=== PATIENT | female | born 1975 | race Hispanic/Latino ===

== ENCOUNTER 2016-08-03 10:50 | Outpatient (CLI) | payer BC ==
[~2016-08-03] VITALS: Ht 152.4 cm; Wt 86.8 kg
--- OUTSIDE RECORDS SUMMARY | 2016-08-03 10:54 | XMS REPORT | Continuity of Care Document ---
Author Author [facility] Ctr of [facility] C[facility] of [facility] Address Unknown Phone Unavailable Allergies Medications Problems Date Dx Coded Attending Type Code Diagnosis Diagnosed By 11/15/2011 493.90 ASTHMA UNSPECIFIED 11/15/2011 493.90 ASTHMA UNSPECIFIED 11/15/2011 493.90 ASTHMA UNSPECIFIED 11/15/2011 ROCK GARCIA APRN 493.90 ASTHMA UNSPECIFIED 11/15/2011 ROCK GARCIA APRN 493.90 ASTHMA UNSPECIFIED 11/15/2011 CATHRYN FRANCO APRN 493.90 ASTHMA UNSPECIFIED 11/15/2011 493.90 ASTHMA UNSPECIFIED 09/15/2012 625.9 UNSPECIFIED SYMPTOM ASSOCIATED WITH FEMALE GENITAL ORGANS 09/15/2012 626.2 MENORRHAGIA 09/15/2012 V72.31 STORAGE BATTERY INSPECTOR EXAM, ROUTINE 09/15/2012 V76.10 BREAST CANCER SCREENING 09/15/2012 V76.2 CERVICAL CANCER SCREENING (PAP SMEAR) 09/15/2012 625.9 UNSPECIFIED SYMPTOM ASSOCIATED WITH FEMALE GENITAL ORGANS 09/15/2012 626.2 MENORRHAGIA 09/15/2012 V72.31 STORAGE BATTERY INSPECTOR EXAM, ROUTINE 09/15/2012 V76.10 BREAST CANCER SCREENING 09/15/2012 V76.2 CERVICAL CANCER SCREENING (PAP SMEAR) 09/15/2012 625.9 UNSPECIFIED SYMPTOM ASSOCIATED WITH FEMALE GENITAL ORGANS 09/15/2012 626.2 MENORRHAGIA 09/15/2012 V72.31 STORAGE BATTERY INSPECTOR EXAM, ROUTINE 09/15/2012 V76.10 BREAST CANCER SCREENING 09/15/2012 V76.2 CERVICAL CANCER SCREENING (PAP SMEAR) 09/15/2012 ROCK GARCIA APRN 625.9 UNSPECIFIED SYMPTOM ASSOCIATED WITH FEMALE GENITAL ORGANS 09/15/2012 ROCK GARCIA APRN 626.2 MENORRHAGIA 09/15/2012 ROCK GARCIA APRN V72.31 STORAGE BATTERY INSPECTOR EXAM, ROUTINE 09/15/2012 JOSE SPRINKLING SYSTEM IRRIGATOR, ROCK S V76.10 BREAST CANCER SCREENING 09/15/2012 ROCK GARCIA APRN S V76.2 CERVICAL CANCER SCREENING (PAP SMEAR) 09/15/2012 ROCK GARCIA APRN S 625.9 UNSPECIFIED SYMPTOM ASSOCIATED WITH FEMALE GENITAL ORGANS 09/15/2012 ROCK GARCIA APRN S 626.2 MENORRHAGIA 09/15/2012 ROCK GARCIA APRN S V72.31 STORAGE BATTERY INSPECTOR EXAM, ROUTINE 09/15/2012 ROCK GARCIA APRN S V76.10 BREAST CANCER SCREENING 09/15/2012 ROCK GARCIA APRN S V76.2 CERVICAL CANCER SCREENING (PAP SMEAR) 09/15/2012 CATHRYN FRANCO APRN A 625.9 UNSPECIFIED SYMPTOM ASSOCIATED WITH FEMALE GENITAL ORGANS 09/15/2012 CATHRYN FRANCO APRN A 626.2 MENORRHAGIA 09/15/2012 CATHRYN FRANCO APRN A V72.31 STORAGE BATTERY INSPECTOR EXAM, ROUTINE 09/15/2012 CATHRYN FRANCO APRN A V76.10 BREAST CANCER SCREENING 09/15/2012 CATHRYN FRANCO APRN A V76.2 CERVICAL CANCER SCREENING (PAP SMEAR) 09/22/2012 789.04 ABDOMINAL PAIN LEFT LOWER QUADRANT 09/22/2012 789.04 ABDOMINAL PAIN LEFT LOWER QUADRANT 09/22/2012 ROCK GARCIA APRN S 789.04 ABDOMINAL PAIN LEFT LOWER QUADRANT 09/22/2012 ROCK GARCIA APRN S 789.04 ABDOMINAL PAIN LEFT LOWER QUADRANT 09/22/2012 CATHRYN FRANCO APRN A 789.04 ABDOMINAL PAIN LEFT LOWER QUADRANT 11/13/2012 ROCK GARCIA APRN V25.01 CONTRACEPTION - ORAL CONTRACEPTION 11/13/2012 ROCK GARCIA APRN V25.01 CONTRACEPTION - ORAL CONTRACEPTION 11/13/2012 CATHRYN FRANCO APRN A V25.01 CONTRACEPTION - ORAL CONTRACEPTION 10/20/2013 ROCK GARCIA APRN 307.42 PERSISTENT DISORDER OF INITIATING OR MAINTAINING SLEEP 10/20/2013 ROCK GARCIA APRN S 623.5 LEUKORRHEA NOT SPECIFIED INFECTIVE 10/20/2013 ROCK GARCIA APRN S V70.0 EXAM - ROUTINE H&P 10/20/2013 CATHRYN FRANCO APRN 307.42 PERSISTENT DISORDER OF INITIATING OR MAINTAINING SLEEP 10/20/2013 CATHRYN FRANCO APRN 623.5 LEUKORRHEA NOT SPECIFIED INFECTIVE 10/20/2013 CATHRYN FRANCO APRN V70.0 EXAM - ROUTINE H&P 10/22/2013 CATHRYN FRANCO APRN V74.5 STD SCREEN Procedures Code [place] [address] GC/CHLAM PROBE ([facility]) 09/15/2012 13109 TRICHOMONAS (IN-HOUSE) 09/15/2012 85128 URINE TEST (IN-HOUSE) 09/15/2012 47700 UA LONG DIP 09/15 72171 PAP SMEAR 2012 07509 CULTURE UROGENITAL 09/18/2012 11425 UA W/ CULTURE IF INDICATED 09/22/2012 Q0091 PAP SMEAR OBTAIN SMEAR 09/28/2012 78126 URINE TEST (IN-HOUSE) 11/13/2012 93333 GC/CHLAM PROBE ([facility]) 10/22/2013 24343 TRICHOMONAS (IN-HOUSE) 10/22/2013 56485 CULTURE UROGENITAL 10/25/2013 Results Encounters ACCT No. Visit Date/Time Discharge Status Pt. Type Provider Facility Loc./Unit Complaint [id number] 10/22/2013 08:57:00 10/22/2013 23: 59:59 CLS Outpatient CATHRYN FRANCO APRN [id number] 10/20/2013 08:51:00 10/20/2013 23: 59:59 CLS Outpatient ROCK GARCIA APRN [id number] 11/13/2012 13:01:00 11/13/2012 23: 59:59 CLS Outpatient ROCK GARCIA APRN [id number] 09/22/2012 13:17:00 09/22/2012 23: 59:59 CLS Outpatient [id number] 09/15/2012 09:33:00 09/15/2012 23: 59:59 CLS Outpatient [id number] 02/21/2012 14:30:00 02/21/2012 23: 59:59 CLS Outpatient [id number] 09/25/2012 15:43:00 Document Registration
[2016-08-03] MEDS ORDERED: ISON100T3 PO (11:14)
[2016-08-03] MEDS ORDERED: RT-ALBUINH IH (11:14)
[2016-08-03 11:19] VITALS: BP 120/70
[2016-08-03 11:56] LABS: BASOPHILS % (AUTO) 0 % (0-10); EOSINOPHILS # (AUTO) 0.2 10^3/uL (0.0-0.3); EOSINOPHILS % (AUTO) 2 % (0-10); LYMPHOCYTES # (AUTO) 1.7 X 10^3 (1.0-4.0); LYMPHOCYTES % (AUTO) 18 % (12-44); MEAN CORPUSCULAR HEMOGLOBIN 29 PG (25-34); MEAN CORPUSCULAR HGB CONC 34 G/DL (32-36); MEAN CORPUSCULAR VOLUME 84 FL (80-99); MONOCYTES # (AUTO) 0.7 X 10^3 (0.0-1.0); MONOCYTES % (AUTO) 7 % (0-12); NEUTROPHILS # (AUTO) 6.6 X 10^3 (1.8-7.8); NEUTROPHILS % (AUTO) 72 % (42-75); PLATELET COUNT 295 10^3/uL (130-400); RED BLOOD COUNT 4.79 10^6/uL (4.35-5.85); RED CELL DISTRIBUTION WIDTH 13.6 % (10.0-14.5); WHITE BLOOD COUNT 9.2 10^3/uL (4.3-11.0)
[2016-08-09] MEDS ORDERED: HYDR-3816 PO (09:13)
[2016-08-09] MEDS ORDERED: IBUP-1773 PO (09:13)
[2016-08-09] MEDS ORDERED: SIME80TA16 PO (09:13)
[2016-08-09] MEDS ORDERED: DOCU100C37 PO (09:13)
== END 2016-08-03 12:21 | disposition home or self-care (01) ==
LOC: PREOP 10:50
PROVIDERS: ATTEND Obstetrics & Gynecology
DX: Z01.818 Encounter for other preprocedural examination (principal); N93.9 Abnormal uterine and vaginal bleeding, unspecified
CPT/HCPCS: 36415; 85025; 86850; 86900; 86901; 87081

== ENCOUNTER 2016-08-09 06:06 | Day surgery (SDC) | payer BC ==
--- OUTSIDE RECORDS SUMMARY | 2016-08-03 11:01 | XMS REPORT | Continuity of Care Document ---
Author Author [facility] Ctr of [facility] Ctr of [facility] Address Unknown Phone Unavailable Allergies Medications [...] GENITAL ORGANS 09/15/2012 626.2 MENORRHAGIA 09/15/2012 V72.31 CLOCK MECHANIC EXAM, ROUTINE 09/15/2012 V76.10 BREAST CANCER SCREENING 09/15/2012 V76.2 CERVICAL CANCER SCREENING (PAP SMEAR) 09/15/2012 625.9 UNSPECIFIED SYMPTOM ASSOCIATED WITH FEMALE GENITAL ORGANS 09/15/2012 626.2 MENORRHAGIA 09/15/2012 V72.31 CLOCK MECHANIC EXAM, ROUTINE 09/15/2012 V76.10 BREAST CANCER SCREENING 09/15/2012 V76.2 CERVICAL CANCER SCREENING (PAP SMEAR) 09/15/2012 625.9 UNSPECIFIED SYMPTOM ASSOCIATED WITH FEMALE GENITAL ORGANS 09/15/2012 626.2 MENORRHAGIA 09/15/2012 V72.31 CLOCK MECHANIC EXAM, ROUTINE 09/15/2012 V76.10 BREAST CANCER SCREENING 09/15/2012 V76.2 CERVICAL CANCER SCREENING (PAP SMEAR) 09/15/2012 ROCK GARCIA APRN 625.9 UNSPECIFIED SYMPTOM ASSOCIATED WITH FEMALE GENITAL ORGANS 09/15/2012 ROCK GARCIA APRN 626.2 MENORRHAGIA 09/15/2012 ROCK GARCIA APRN V72.31 CLOCK MECHANIC EXAM, ROUTINE 09/15/2012 JOSE ULTRASOUND SPEC, ROCK S V76.10 BREAST CANCER SCREENING 09/15/2012 ROCK GARCIA APRN S V76.2 CERVICAL CANCER SCREENING (PAP SMEAR) 09/15/2012 ROCK GARCIA APRN S 625.9 UNSPECIFIED SYMPTOM ASSOCIATED WITH FEMALE GENITAL ORGANS 09/15/2012 ROCK GARCIA APRN S 626.2 MENORRHAGIA 09/15/2012 ROCK GARCIA APRN S V72.31 CLOCK MECHANIC EXAM, ROUTINE 09/15/2012 ROCK GARCIA APRN S V76.10 BREAST CANCER SCREENING 09/15/2012 ROCK GARCIA APRN S V76.2 CERVICAL CANCER SCREENING (PAP SMEAR) 09/15/2012 CATHRYN FRANCO APRN A 625.9 UNSPECIFIED SYMPTOM ASSOCIATED WITH FEMALE GENITAL ORGANS 09/15/2012 CATHRYN FRANCO APRN A 626.2 MENORRHAGIA 09/15/2012 CATHRYN FRANCO APRN A V72.31 CLOCK MECHANIC EXAM, ROUTINE 09/15/2012 CATHRYN FRANCO APRN A [...] Procedures Code Description [place] [address] GC/CHLAM PROBE ([facility]) 09/15/2012 93547 TRICHOMONAS (IN-HOUSE) 09/15/2012 75691 URINE TEST (IN-HOUSE) 09/15/2012 19764 UA LONG DIP 09/15 22734 PAP SMEAR 2012 89064 CULTURE UROGENITAL 09/18/2012 27351 UA W/ CULTURE IF INDICATED 09/22/2012 Q0091 PAP SMEAR OBTAIN SMEAR 09/28/2012 63624 URINE TEST (IN-HOUSE) 11/13/2012 66354 GC/CHLAM PROBE ([facility]) 10/22/2013 72726 TRICHOMONAS (IN-HOUSE) 10/22/2013 56525 CULTURE UROGENITAL 10/25/2013 Results Encounters ACCT No. Visit Date/Time Discharge Status Pt. Type Provider Facility Loc./Unit Complaint [id number] 10/22/2013 08:57:00 10/22/2013 23: 59:59 CLS Outpatient CATHRYN FRANCO APRN [id number] 10/20/2013 08:51:00 10/20/2013 23: 59:59 CLS Outpatient ROCK GARCIA APRN [id number] 11/13/2012 13:01:00 11/13/2012 23: 59:59 CLS Outpatient ROCK GARCIA APRN [id number] 09/22/2012 13:17:00 09/22/2012 23: 59:59 CLS Outpatient [id number] 09/15/2012 09:33:00 09/15/2012 23: 59:59 CLS Outpatient [id number] 02/21/2012 14:30:00 02/21/2012 23: 59:59 CLS Outpatient [id number] 09/25/2012 15:43:00 Document Registration
--- OUTSIDE RECORDS SUMMARY | 2016-08-03 11:01 | XMS REPORT | Continuity of Care Document ---
Author Author [facility] of [facility] C[facility] of [facility] Address Unknown Phone Unavailable Allergies Medications [...] GENITAL ORGANS 09/15/2012 626.2 MENORRHAGIA 09/15/2012 V72.31 ENVIRONMENTAL LAWYER EXAM, ROUTINE 09/15/2012 V76.10 BREAST CANCER SCREENING 09/15/2012 V76.2 CERVICAL CANCER SCREENING (PAP SMEAR) 09/15/2012 625.9 UNSPECIFIED SYMPTOM ASSOCIATED WITH FEMALE GENITAL ORGANS 09/15/2012 626.2 MENORRHAGIA 09/15/2012 V72.31 ENVIRONMENTAL LAWYER EXAM, ROUTINE 09/15/2012 V76.10 BREAST CANCER SCREENING 09/15/2012 V76.2 CERVICAL CANCER SCREENING (PAP SMEAR) 09/15/2012 625.9 UNSPECIFIED SYMPTOM ASSOCIATED WITH FEMALE GENITAL ORGANS 09/15/2012 626.2 MENORRHAGIA 09/15/2012 V72.31 ENVIRONMENTAL LAWYER EXAM, ROUTINE 09/15/2012 V76.10 BREAST CANCER SCREENING 09/15/2012 V76.2 CERVICAL CANCER SCREENING (PAP SMEAR) 09/15/2012 ROCK GARCIA APRN 625.9 UNSPECIFIED SYMPTOM ASSOCIATED WITH FEMALE GENITAL ORGANS 09/15/2012 ROCK GARCIA APRN 626.2 MENORRHAGIA 09/15/2012 ROCK GARCIA APRN V72.31 ENVIRONMENTAL LAWYER EXAM, ROUTINE 09/15/2012 JOSE TYPE SOLDERING MACHINE TENDER, ROCK S V76.10 BREAST CANCER SCREENING 09/15/2012 ROCK GARCIA APRN S V76.2 CERVICAL CANCER SCREENING (PAP SMEAR) 09/15/2012 ROCK GARCIA APRN S 625.9 UNSPECIFIED SYMPTOM ASSOCIATED WITH FEMALE GENITAL ORGANS 09/15/2012 ROCK GARCIA APRN S 626.2 MENORRHAGIA 09/15/2012 ROCK GARCIA APRN S V72.31 ENVIRONMENTAL LAWYER EXAM, ROUTINE 09/15/2012 ROCK GARCIA APRN S V76.10 BREAST CANCER SCREENING 09/15/2012 ROCK GARCIA APRN S V76.2 CERVICAL CANCER SCREENING (PAP SMEAR) 09/15/2012 CATHRYN FRANCO APRN A 625.9 UNSPECIFIED SYMPTOM ASSOCIATED WITH FEMALE GENITAL ORGANS 09/15/2012 CATHRYN FRANCO APRN A 626.2 MENORRHAGIA 09/15/2012 CATHRYN FRANCO APRN A V72.31 ENVIRONMENTAL LAWYER EXAM, ROUTINE 09/15/2012 CATHRYN FRANCO APRN A [...] S V70.0 EXAM - ROUTINE H&P 10/20/2013 CTAHRYN FRANCO APRN 307.42 PERSISTENT DISORDER OF INITIATING OR MAINTAINING SLEEP 10/20/2013 CATHRYN FRANCO APRN 623.5 LEUKORRHEA NOT SPECIFIED INFECTIVE 10/20/2013 CATHRYN FRANCO APRN V70.0 EXAM - ROUTINE H&P 10/22/2013 CATHRYN FRANCO APRN V74.5 STD SCREEN Procedures Code Description [place] [address] GC/CHLAM PROBE ([facility]) 09/15/2012 26698 TRICHOMONAS (IN-HOUSE) 09/15/2012 37016 URINE TEST (IN-HOUSE) 09/15/2012 92309 UA LONG DIP 09/15 73970 PAP SMEAR 2012 55251 CULTURE UROGENITAL 09/18/2012 93871 UA W/ CULTURE IF INDICATED 09/22/2012 Q0091 PAP SMEAR OBTAIN SMEAR 09/28/2012 68608 URINE TEST (IN-HOUSE) 11/13/2012 13850 GC/CHLAM PROBE ([facility]) 10/22/2013 13448 TRICHOMONAS (IN-HOUSE) 10/22/2013 88001 CULTURE UROGENITAL 10/25/2013 Results Encounters ACCT No. Visit Date/Time Discharge Status Pt. Type Provider Facility Loc./Unit Complaint [id number] 10/22/2013 08:57:00 10/22/2013 23: 59:59 CLS Outpatient CATHRYN FRANCO APRN [id number] 10/20/2013 08:51:00 10/20/2013 23: 59:59 CLS Outpatient ROCK GARCIA APRN [id number] 11/13/2012 13:01:00 11/13/2012 23: 59:59 CLS Outpatient RCOK GARCIA APRN [id number] 09/22/2012 13:17:00 09/22/2012 23: 59:59 CLS Outpatient [id number] 09/15/2012 09:33:00 09/15/2012 23: 59:59 CLS Outpatient [id number] 02/21/2012 14:30:00 02/21/2012 23: 59:59 CLS Outpatient [id number] 09/25/2012 15:43:00 Document Registration
[~2016-08-09] VITALS: Ht 152.4 cm; Wt 86.8 kg
[~2016-08-09 06:06] MED LIST: ISON100T3 PO; RT-ALBUINH IH
--- OUTSIDE RECORDS SUMMARY | 2016-08-09 06:19 | XMS REPORT | Continuity of Care Document ---
Author Author [facility] Ctr of [facility] Ctr of [facility] Address Unknown Phone Unavailable Allergies Medications [...] GENITAL ORGANS 09/15/2012 626.2 MENORRHAGIA 09/15/2012 V72.31 B2B SALES REPRESENTATIVE EXAM, ROUTINE 09/15/2012 V76.10 BREAST CANCER SCREENING 09/15/2012 V76.2 CERVICAL CANCER SCREENING (PAP SMEAR) 09/15/2012 625.9 UNSPECIFIED SYMPTOM ASSOCIATED WITH FEMALE GENITAL ORGANS 09/15/2012 626.2 MENORRHAGIA 09/15/2012 V72.31 B2B SALES REPRESENTATIVE EXAM, ROUTINE 09/15/2012 V76.10 BREAST CANCER SCREENING 09/15/2012 V76.2 CERVICAL CANCER SCREENING (PAP SMEAR) 09/15/2012 625.9 UNSPECIFIED SYMPTOM ASSOCIATED WITH FEMALE GENITAL ORGANS 09/15/2012 626.2 MENORRHAGIA 09/15/2012 V72.31 B2B SALES REPRESENTATIVE EXAM, ROUTINE 09/15/2012 V76.10 BREAST CANCER SCREENING 09/15/2012 V76.2 CERVICAL CANCER SCREENING (PAP SMEAR) 09/15/2012 ROCK GARCIA APRN 625.9 UNSPECIFIED SYMPTOM ASSOCIATED WITH FEMALE GENITAL ORGANS 09/15/2012 ROCK GARCIA APRN 626.2 MENORRHAGIA 09/15/2012 ROCK GARCIA APRN V72.31 B2B SALES REPRESENTATIVE EXAM, ROUTINE 09/15/2012 JOSE MEDICAL RESEARCH SCIENTIST, ROCK S V76.10 BREAST CANCER SCREENING 09/15/2012 ROCK GARCIA APRN S V76.2 CERVICAL CANCER SCREENING (PAP SMEAR) 09/15/2012 ROCK GARCIA APRN S 625.9 UNSPECIFIED SYMPTOM ASSOCIATED WITH FEMALE GENITAL ORGANS 09/15/2012 ROCK GARCIA APRN S 626.2 MENORRHAGIA 09/15/2012 ROCK GARCIA APRN S V72.31 B2B SALES REPRESENTATIVE EXAM, ROUTINE 09/15/2012 ROCK GARCIA APRN S V76.10 BREAST CANCER SCREENING 09/15/2012 ROCK GARCIA APRN S V76.2 CERVICAL CANCER SCREENING (PAP SMEAR) 09/15/2012 CATHRYN FRANCO APRN A 625.9 UNSPECIFIED SYMPTOM ASSOCIATED WITH FEMALE GENITAL ORGANS 09/15/2012 CATHRYN FRANCO APRN A 626.2 MENORRHAGIA 09/15/2012 CATHRYN FRANCO APRN A V72.31 B2B SALES REPRESENTATIVE EXAM, ROUTINE 09/15/2012 CATHRYN FRANCO APRN A [...] Procedures Code [place] [address] GC[facility]CHLAM PROBE ([facility] 09/15/2012 14951 TRICHOMONAS (IN-HOUSE) 09/15/2012 68154 URINE TEST (IN-HOUSE) 09/15/2012 65001 UA LONG DIP 09/15 94200 PAP SMEAR 2012 32399 CULTURE UROGENITAL 09/18/2012 52898 UA W/ CULTURE IF INDICATED 09/22/2012 Q0091 PAP SMEAR OBTAIN SMEAR 09/28/2012 28475 URINE TEST (IN-HOUSE) 11/13/2012 65878 GC[facility]LAM PROBE [facility] 10/22/2013 86810 TRICHOMONAS (IN-HOUSE) 10/22/2013 70713 CULTURE UROGENITAL 10/25/2013 Results Encounters ACCT No. Visit Date/Time Discharge Status Pt. Type Provider Facility Loc./Unit Complaint [id number] 10/22/2013 08:57:00 10/22/2013 23: 59:59 CLS Outpatient CATHRYN FRANCO APRN [id number] 10/20/2013 08:51:00 10/20/2013 23: 59:59 CLS Outpatient ROCK GARCIA APRN [id number] 11/13/2012 13:01:00 11/13/2012 23: 59:59 CLS Outpatient ROCK GARCIA APRN [id number] 09/22/2012 13:17:00 09/22/2012 23: 59:59 CLS Outpatient [id number] 09/15/2012 09:33:00 09/15/2012 23: 59:59 CLS Outpatient [id number] 02/21/2012 14:30:00 02/21/2012 23: 59:59 CLS Outpatient [id number] 09/25/2012 15:43:00 Document Registration
--- OUTSIDE RECORDS SUMMARY | 2016-08-09 06:19 | XMS REPORT | Continuity of Care Document ---
Author Author [facility] C[facility] of [facility] Ctr of [facility] Address Unknown Phone Unavailable Allergies Medications [...] GENITAL ORGANS 09/15/2012 626.2 MENORRHAGIA 09/15/2012 V72.31 LATHE OPERATOR CONTACT LENS EXAM, ROUTINE 09/15/2012 V76.10 BREAST CANCER SCREENING 09/15/2012 V76.2 CERVICAL CANCER SCREENING (PAP SMEAR) 09/15/2012 625.9 UNSPECIFIED SYMPTOM ASSOCIATED WITH FEMALE GENITAL ORGANS 09/15/2012 626.2 MENORRHAGIA 09/15/2012 V72.31 LATHE OPERATOR CONTACT LENS EXAM, ROUTINE 09/15/2012 V76.10 BREAST CANCER SCREENING 09/15/2012 V76.2 CERVICAL CANCER SCREENING (PAP SMEAR) 09/15/2012 625.9 UNSPECIFIED SYMPTOM ASSOCIATED WITH FEMALE GENITAL ORGANS 09/15/2012 626.2 MENORRHAGIA 09/15/2012 V72.31 LATHE OPERATOR CONTACT LENS EXAM, ROUTINE 09/15/2012 V76.10 BREAST CANCER SCREENING 09/15/2012 V76.2 CERVICAL CANCER SCREENING (PAP SMEAR) 09/15/2012 ROCK GARCIA APRN 625.9 UNSPECIFIED SYMPTOM ASSOCIATED WITH FEMALE GENITAL ORGANS 09/15/2012 ROCK GARCIA APRN 626.2 MENORRHAGIA 09/15/2012 ROCK GARCIA APRN V72.31 LATHE OPERATOR CONTACT LENS EXAM, ROUTINE 09/15/2012 JOSE WOOD MODEL MAKER, ROCK S V76.10 BREAST CANCER SCREENING 09/15/2012 ROCK GARCIA APRN S V76.2 CERVICAL CANCER SCREENING (PAP SMEAR) 09/15/2012 ROCK GARCIA APRN S 625.9 UNSPECIFIED SYMPTOM ASSOCIATED WITH FEMALE GENITAL ORGANS 09/15/2012 ROCK GARCIA APRN S 626.2 MENORRHAGIA 09/15/2012 ROCK GARCIA APRN S V72.31 LATHE OPERATOR CONTACT LENS EXAM, ROUTINE 09/15/2012 ROCK GARICA APRN S V76.10 BREAST CANCER SCREENING 09/15/2012 ROCK GARCIA APRN S V76.2 CERVICAL CANCER SCREENING (PAP SMEAR) 09/15/2012 CATHRYN FRANCO APRN A 625.9 UNSPECIFIED SYMPTOM ASSOCIATED WITH FEMALE GENITAL ORGANS 09/15/2012 CATHRYN FRANCO APRN A 626.2 MENORRHAGIA 09/15/2012 CATHRYN FRANCO APRN A V72.31 LATHE OPERATOR CONTACT LENS EXAM, ROUTINE 09/15/2012 CATHRYN FRANCO APRN A [...] Procedures Code Description [place] [address] GC/CHLAM PROBE ([facility]) 09/15/2012 34092 TRICHOMONAS (IN-HOUSE) 09/15/2012 39085 URINE TEST (IN-HOUSE) 09/15/2012 99259 UA LONG DIP 09/15 10973 PAP SMEAR 2012 23763 CULTURE UROGENITAL 09/18/2012 39767 UA W/ CULTURE IF INDICATED 09/22/2012 Q0091 PAP SMEAR OBTAIN SMEAR 09/28/2012 40295 URINE TEST (IN-HOUSE) 11/13/2012 23747 GC/CHLAM PROBE ([facility]) 10/22/2013 74086 TRICHOMONAS (IN-HOUSE) 10/22/2013 10499 CULTURE UROGENITAL 10/25/2013 Results Encounters ACCT No. Visit Date/Time Discharge Status Pt. Type Provider Facility Loc./Unit Complaint [id number] 10/22/2013 08:57:00 10/22/2013 23: 59:59 CLS Outpatient CATHRYN FRANCO APRN [id number] 10/20/2013 08:51:00 10/20/2013 23: 59:59 CLS Outpatient ROCK GARCIA APRN [id number] 11/13/2012 13:01:00 11/13/2012 23: 59:59 CLS Outpatient ROCK GARCIA APRN [id number] 09/22/2012 13:17:00 09/22/2012 23: 59:59 CLS Outpatient [id number] 09/15/2012 09:33:00 09/15/2012 23: 59:59 CLS Outpatient [id number] 02/21/2012 14:30:00 02/21/2012 23: 59:59 CLS Outpatient [id number] 09/25/2012 15:43:00 Document Registration
[2016-08-09] MEDS: LACTATED RINGERS 1,000 ML IV PRN ×3 (06:20→09:00)
[2016-08-09] MEDS ORDERED: ceFAZolin 2 GM/50 ML NS 50 ML IV ONE (06:34)
[2016-08-09] MEDS ORDERED: metroNIDAZOLE 500MG/100ML IVPB 100 ML ONE (06:35)
[2016-08-09] MEDS ORDERED: BUPIVACAINE 0.25% 30 ML (SENSORCAINE) VIAL ONE (06:45)
--- NOTE | 2016-08-09 06:46 | Progress Note-Pre Operative ---
Pre-Operative Progress Note H&P Reviewed The H&P was reviewed, patient examined and no changes noted. Date H&P Reviewed: Aug 09, 2016 Time H&P Reviewed: 06:40 Pre-Operative Diagnosis: AUB, Fibroid uterus JOVAN THOMAS DO Aug 09, 2016 6:46 am
[2016-08-09] MEDS ORDERED: DEXAMETHASONE PF 10 MG/ML (DECADRON) VIAL ONE (06:48)
[2016-08-09] MEDS ORDERED: proPOfol 200 MG/20 ML (DIPRIVAN) VIAL IV ONE (06:48)
[2016-08-09] MEDS ORDERED: SEVOFLURANE (ULTANE) 15 ML INHAL SOLN ONE ×2 (06:48→09:08)
[2016-08-09] MEDS ORDERED: ONDANSETRON 4 MG/2 ML (SDV) Z0FRAN ONE ×2 (06:48→08:51)
[2016-08-09] MEDS ORDERED: LIDOCAINE PF 2% 10 ML (XYLOCAINE) AMP ONE (06:48)
[2016-08-09] MEDS ORDERED: LACTATED RINGERS 1,000 ML IV ONE ×3 (06:48→08:38)
[2016-08-09] MEDS ORDERED: fentaNYL INJECTION 250 MCG/5 ML AMP ONE (06:48)
[2016-08-09] MEDS ORDERED: MIDAZOLAM 2 MG/2 ML (VERSED) VIAL ONE (06:48)
[2016-08-09] MEDS ORDERED: ROCURONIUM 50 MG/5 ML (ZEMURON) VIAL IV ONE (06:48)
[2016-08-09] MEDS ORDERED: BECL8.7A7 IH (07:06)
[2016-08-09 07:12] VITALS: BP 107/52
[2016-08-09] MEDS ORDERED: PHENYLEPHRINE 100 MCG/ML 10 ML (ANESTHESIA) SYR ONE (08:31)
[2016-08-09] MEDS ORDERED: NEOSTIGMINE (BLOXIVERZ ) 1 MG/1ML 10 ML VIAL ONE (08:34)
[2016-08-09] MEDS ORDERED: GLYCOPYRROLATE 0.2 MG/ML (ROBINUL) 2 ML VIAL ONE (08:34)
[2016-08-09] MEDS ORDERED: morphine INJ 10 MG/ML 1ML (SYR OR VIAL) ONE (08:51)
[2016-08-09] MEDS ORDERED: KETOROLAC 30 MG/ML VIAL ONE (08:51)
[2016-08-09] MEDS ORDERED: morphine INJ 10 MG/ML 1ML (SYR OR VIAL) IVP PRN (09:00)
[2016-08-09] MEDS ORDERED: ONDANSETRON 4 MG/2 ML (SDV) Z0FRAN IVP PRN (09:00)
[2016-08-09] MEDS ORDERED: HYDROmorphone (DILAUDID) 2 MG/ML VIAL IVP PRN (09:00)
[2016-08-09] MEDS ORDERED: MEPERIDINE (DEMEROL) INJ 50 MG/ML IVP PRN (09:00)
[2016-08-09] MEDS ORDERED: LACTATED RINGERS 1,000 ML IV SCH (09:08)
[2016-08-09] MEDS ORDERED: IBUP-1773 PO (09:13)
[2016-08-09] MEDS ORDERED: SIME80TA16 PO (09:13)
[2016-08-09] MEDS ORDERED: DOCU100C37 PO (09:13)
[2016-08-09] MEDS ORDERED: HYDR-3816 PO (09:13)
--- NOTE | 2016-08-09 09:14 | Discharge Inst-Women's Service ---
Discharge Inst-Women's Serv Depart Medication/Instructions New, Converted or Re-Newed RX: RX on Chart Consults/Follow Up Additional Follow Up: Yes Orders/Referrals Dr. Santiago in 7-10 days and in 8 weeks Activity Activity: Activity as Tolerated Driving Instructions: No Driving for 1 Week NO SMOKING: NO SMOKING Nothing Inside Vagina: No Douching, No [place], No Tampons Diet Discharge Diet: No Restrictions Symptoms to Report to : Bleeding Excessive, Pain Increased, Fever Over 101 Degrees F, Vaginal Bleeding Increase, Questions/Concerns For Any Problems or Questions: Contact Your Physician Skin/Wound Care Infection Signs and Symptoms: Increased Redness, Foul Odor of Wound, Increased Drainage, Skin Itchy or Has a Rash, Increased Swelling, Temperature Above 101 F Operative Area Clean and Dry: Keep Incision Clean/Dry Stitches/Germán/Dermabond: Dermabond, Care of Stitches Bathing Instructions: JOVAN Camara DO Aug 09, 2016 09:14
[2016-08-09] MEDS ORDERED: SIMETHICONE 80 MG (MYLICON) CHEW PO PRN (09:15)
[2016-08-09] MEDS ORDERED: ZOLPIDEM 5 MG (AMBIEN) TAB PO PRN (09:15)
[2016-08-09] MEDS ORDERED: CHLORASEPTIC LOZENGE MM PRN (09:15)
[2016-08-09] MEDS ORDERED: DOCUSATE SODIUM 100 MG (COLACE) CAP PO PRN (09:15)
[2016-08-09] MEDS ORDERED: ONDANSETRON 4 MG/2 ML (SDV) Z0FRAN IV PRN (09:15)
[2016-08-09] MEDS ORDERED: ANTACID SUSP 30 ML UDC (MYLANTA) PO PRN (09:15)
[2016-08-09] MEDS: KETOROLAC 30 MG/ML VIAL IV PRN ×2 (09:51→16:55)
[2016-08-09 10:15] VITALS: BP 104/67
[2016-08-09] MEDS ORDERED: HYDROmorphone (DILAUDID) 2 MG/ML VIAL IVP NR (11:00)
[2016-08-09 12:00] VITALS: BP 104/63
[2016-08-09] MEDS: HYDROcodone/APAP 7.5 MG/325 MG (LORTAB, LORCET PLUS) TABLET PO PRN ×2 (14:47→20:58)
[2016-08-09 16:00] VITALS: BP 119/73
[2016-08-09 18:00] VITALS: BP 103/63
[2016-08-09] MEDS ORDERED: FLU TRIvalent (5 YOA+) 2016-17 (AFLURIA) 0.5 ML IM ONE (18:30)
[2016-08-09 20:58] VITALS: BP 105/65
[2016-08-10 01:36] VITALS: BP 99/54
[2016-08-10] MEDS: IBUPROFEN 600 MG (MOTRIN) TAB PO PRN ×3 (01:36→12:08)
[2016-08-10] MEDS: HYDROcodone/APAP 7.5 MG/325 MG (LORTAB, LORCET PLUS) TABLET PO PRN ×2 (01:45→09:34)
[2016-08-10 06:38] VITALS: BP 99/55
--- NOTE | 2016-08-10 09:36 | OPERATIVE REPORT ---
PROCEDURE PHYSICIAN: BOB THOMAS DATE OF PROCEDURE: 10/07/2016 PREOPERATIVE DIAGNOSIS: 1. 41-year-old female with pelvic pressure. 2. Abnormal uterine bleeding. 3. Fibroid uterus. POSTOPERATIVE DIAGNOSIS: 1. 41-year-old female with pelvic pressure. 2. Abnormal uterine bleeding. 3. Fibroid uterus. PROCEDURE: Robotic assisted total laparoscopic hysterectomy with right oophorectomy and bilateral salpingectomy greater than 250 grams. SURGEON: Dr. Bob Thomas. MARINE SUPERINTENDENT: Annamaria Mena APRN ANESTHESIA: General endotracheal. ESTIMATED BLOOD LOSS: 150 mL. FLUIDS: 2 liters of lactated ringer solution. URINE OUTPUT: 30 mL FINDINGS: Bulky and enlarged uterus with what appears to be a left-sided intramural fibroid, an extensive amount of adhesions of the right ovary and left ovary to the surrounding pelvic side wall and omentum. A dark-appearing right ovarian cyst. SPECIMEN SENT: Uterus, bilateral fallopian tubes, and right ovary. INDICATIONS FOR THE PROCEDURE: This 41-year-old female was a consultation to my office for ongoing issues with abnormal bleeding. She was also having an extensive increase in pelvic pressure. Ultrasound revealed fibroids in her uterus on evaluation. I discussed with the patient more conservative measures including hormonal suppressive therapy which sounds like she had already been through in the past. She reports a time frame of getting an injection to control her bleeding and as a form of control. She reports still having bleeding despite this. Alternatives to treatment of fibroids, as well as uterine artery embolization were all discussed with the patient. However, she agreed to proceed with a more definitive measure which is hysterectomy. I discussed with the patient my robotic modality for performing hysterectomy. Risk benefits, of the robotic surgery as well as a hysterectomy itself were discussed with the patient in detail including risk of bleeding, infection, damaging any of the surrounding structures, including not limited to the bowel, bladder, ureter, kidneys, postoperative hematoma, postoperative thromboembolic events, risks from anesthesia and even . After everything was discussed with the patient, consent was obtained. The patient was taken to the operating room. OPERATIVE REPORT IN DETAIL: Once in the operating room, general anesthesia was found to be adequate. She was placed in dorsal lithotomy position, prepped and draped in the normal sterile fashion. Valero catheter was placed using sterile technique. A weighted speculum was inserted patient's vagina. A right angle retractor is used to visualize the cervix it was grasped at the 12 o'clock position using a long single tooth tenaculum. I then place an 0 Vicryl suture through the anterior lip of the cervix and used this as my retraction point and removed the single tooth tenaculum. I then sound the uterine cavity depth which was found to be 8 cm. I then select an 8 cm PALOMA uterine manipulator tip and a 4 cm colpotomy ring. I assemble the PALOMA uterine manipulator, place the manipulator tip into the endometrial canal deploy the balloon, advanced the colpotomy ring and excellent uterine manipulation is noted after doing all of this. I then remove the other instruments other than the PALOMA and the Valero from the patient's vagina and take my attention to the abdomen after a change of gloves is performed. I then supraumbilically infiltrate this area using 0.25% Marcaine. I make an 8 mm incision and direct a Veress needle through this incision until placement is confirmed using a saline drop test. I then proceed with insufflation using CO2 gas. An opening pressure of 5 mmHg is noted. I proceed to maximum pressure of 15 mmHg at which point I remove the Veress needle and introduced an 8 mm blunt da Mira camera trocar. Once this is in place, I am able to confirm intraperitoneal placement using the da Mira laparoscope. I then have the patient placed in steep Trendelenburg which allows me to visualize all of my findings described above. I place 2 lateral trocars, these are both 8 mm trocars, I infiltrate the skin using 0.25% Marcaine and make an 8 mm incision and directing trocar through the incision and under direct visualization of the laparoscope. Once both of these trocars are in place I have adequate access to bring in the da Mira robot and I then dock it in the appropriate fashion. I place the fenestrated bipolar grasper in the left hand and monopolar little in the right hand. Due to the finding of the ovary, I first take down the filmy adhesions of the omentum to the anterior abdominal wall as well as the adhesions to the ovaries of the omentum. Due to the size of the right ovary I then decide to remove that right ovary. I start at the infundibulopelvic ligament, bipolar cauterizing and transecting using monopolar little. I then bipolar cauterize the round ligament and transect it using the monopolar little. I then I take this dissection down the broad ligament to the point of the lower uterine segment at which point I separate the broad ligament into the anterior posterior leaflets. The anterior leaflet is taken around to the anterior vaginal fornix; posterior leaflet is taken around to the posterior vaginal fornix. This allows me to skeletonize the uterine vessels laterally. I bipolar cauterize them using the bipolar fenestrated graspers. I transect them using monopolar little which complete my dissection of the right side. During the dissection I am able to visualize the ureter peristalsing and stay clear of it during my dissection. On the left side I grasp the utero-ovarian ligament, bipolar cauterize this and transect it using the monopolar little. I make a hole in the mesosalpinx and using the monopolar little and take this laterally, amputating the fallopian tube from its surrounding blood supply. I then grasp the round ligament, bipolar cauterize this and transect it using the monopolar little. I then am able to grab the entire broad ligament using my fenestrated bipolar grasper and bipolar cauterize and transect it using the monopolar little down to the level of the lower uterine segment at which point I separate out the anterior posterior leaflets. The anterior leaflet is taken around to the anterior vaginal fornix, posterior leaflets are taken around to the posterior vaginal fornix. This allows me to skeletonize out the uterine vessels, which I bipolar cauterize and transect using the monopolar little. I then have circumferentially the blood supply from the uterus at which point I perform a colpotomy at 12 o'clock position using the monopolar little allowing me to visualize the PALOMA uterine manipulator ring. I then take the colpotomy circumferentially around the colpotomy ring of the PALOMA amputating the cervix away from the surrounding vaginal fornix. The cervix, uterus, bilateral fallopian tubes, and right ovary are then removed through the vagina. I then close the vaginal cuff using 2-0 Vicryl suture in a [id number] fashion, the lateral vaginal apices colposupending them to the uterosacral ligament. I then close the remainder of the vaginal cuff using 2-0 V-Loc in a running fashion. I then copiously irrigate the pelvis using normal saline. There is no active bleeding noted from any my dissection planes. I undock the da Mira robot and proceed with the remainder case laparoscopically. I place FloSeal over all of my planes of dissection for postoperative insurance of hemostasis. I then have the patient taken out of steep Trendelenburg and remove the lateral trocars are the laparoscope. The supraumbilical trocar is left in place to remove insufflation and insufflation is removed through this site and 0.25% Marcaine 10 mL was introduced to this site for postoperative pain management. I then remove this trocar. The skin was then closed using 4-0 Monocryl in an interrupted subcuticular stitches. Dermabond is applied to the incision. Band-Aids are placed over this. Valero catheter was left in place. The patient tolerated the procedure well and was taken to the recovery area in stable condition. Lap and sponge counts correct at the end of the procedure. Instrument count is correct as well. 2 grams of Ancef 500 mg Flagyl given preoperatively for infection prophylaxis Job ID: [id number] Dictated Date: 08/09/2016 09:29:22 Clinical Laboratory Science Professor Date: 08/10/2016 09:11:55 / pamela
[2016-08-10 11:40] VITALS: BP 103/57
--- NOTE | 2016-08-10 12:24 | Anesthesia-General Post-Op ---
General Patient Condition Mental Status/LOC: Same as Preop Cardiovascular: Satisfactory Nausea/Vomiting: Absent Respiratory: Satisfactory Pain: Controlled Complications: Absent Post Op Complications Complications None Follow Up Care/Instructions Patient Instructions None needed. Anesthesia/Patient Condition Patient Condition Patient is doing well, no complaints, stable vital signs, no apparent adverse anesthesia problems. No complications reported per nursing. NO WHEATLEY CRNA Aug 10, 2016 12:24
[2016-08-10 12:50] VITALS: BP 103/57
== END 2016-08-10 13:15 | disposition home or self-care (01) ==
LOC: SDC 06:06 → WS 10:15 → SDC 08-10 13:15
PROVIDERS: ATTEND Obstetrics & Gynecology
DX: R10.2 Pelvic and perineal pain (principal); D25.1 Intramural leiomyoma of uterus; N93.9 Abnormal uterine and vaginal bleeding, unspecified; D25.0 Submucous leiomyoma of uterus; N80.1 Endometriosis of ovary; N83.6 Hematosalpinx
CPT/HCPCS: 84703; 88307; 94664; 96375

== ENCOUNTER 2017-11-16 15:01 | Emergency (ER) | payer BC ==
[~2017-11-16] VITALS: Ht 160 cm; Wt 83.9 kg
[~2017-11-16 15:01] MED LIST changes: +BECL8.7A7 IH; +DOCU100C37 PO; +HYDR-34 PO; +IBUP-1773 PO; +SIME80TA16 PO
--- OUTSIDE RECORDS SUMMARY | 2017-11-16 15:09 | XMS REPORT ---
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 Unknown Non Drug Allergy May, Unknown SOCIAL HISTORY No smoking Hx information available PLAN OF CARE VITAL SIGNS Height 83 in 2016-05-17 Weight 187.3 lbs 2016-05-17 Heart Rate 80 bpm 2016-05-17 Respiratory Rate 20 2016-05-17 BMI 19.11 kg/m2 2016-05-17 Blood pressure systolic 118 mmHg 2016-05-17 Blood pressure diastolic 78 mmHg 2016-05-17 MEDICATIONS Medication Instructions Dosage Frequency Start Date End Date Duration Status Isoniazid 300 MG as directed Nov, Active Vitamin B-6 100 MG Orally Once a day 1 tablet 24h Nov, Active Proventil HFA 90 mcg/actuation inhale 2 puffs by inhalation route every 6 hours PT MUST MAKE AND KEEP APPT FOR FURTHER REFILLS 4h October, Active Qvar 40 mcg/actuation Inhalation Twice a day 2 Puffs by Inhalation route 2 times per day 12h Apr, Active RESULTS No Results PROCEDURES Procedure Date Ordered Related Diagnosis Body Site HEPATIC FUNCTION PANEL May 17, 2016 VENIPUNCT, ROUTINE* May 17, 2016 Office Visit, Est Pt., Level 3 May 17, 2016 IMMUNIZATIONS No Known Immunizations
--- OUTSIDE RECORDS SUMMARY | 2017-11-16 15:09 | XMS REPORT ---
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
--- OUTSIDE RECORDS SUMMARY | 2017-11-16 15:09 | XMS REPORT ---
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 Problem Excessive or frequent menstruation 626.2 Active Problem Unspecified symptom associated with female genital organs 625.9 Active Problem Unspecified breast screening V76.10 Active Problem Routine gynecological examination V72.31 Active Problem Asthma, unspecified, unspecified status 493.90 Active Problem General counseling for prescription of oral contraceptives V25.01 Active Problem Screening examination for venereal disease V74.5 Active Problem Abdominal pain, left lower quadrant 789.04 Active Medications Medication Code System Code Instructions Start Date End Date Status Dosage Qvar [facility] [address]-27 40 mcg/actuation Inhalation Twice a day Apr 30, 2012 2 Puffs by Inhalation route 2 times per day PT MUST MAKE AND KEEP APPT FOR FURTHER REFILLS Proventil HFA [facility] [address]-08 90 mcg/actuation every 4 hrs October 20, 2013 inhale 2 puffs by inhalation route every 6 hours PT MUST MAKE AND KEEP APPT FOR FURTHER REFILLS Results No Known Results Summary Purpose [employer] Submission
--- OUTSIDE RECORDS SUMMARY | 2017-11-16 15:10 | XMS REPORT ---
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
--- OUTSIDE RECORDS SUMMARY | 2017-11-16 15:10 | XMS REPORT | Continuity of Care Document ---
Author Author [facility] Address Unknown Phone Unavailable Allergies There is no data. Medications There is no data. Problems Date Dx Coded Attending Type Code Diagnosis Diagnosed By 11/15/2011 493.90 ASTHMA UNSPECIFIED 11/15/2011 493.90 ASTHMA UNSPECIFIED 11/15/2011 493.90 ASTHMA UNSPECIFIED 11/15/2011 ROCK GARCIA APRN 493.90 ASTHMA UNSPECIFIED 11/15/2011 ROCK GARCIA APRN 493.90 ASTHMA UNSPECIFIED 11/15/2011 CATHRYN FRANCO APRN 493.90 ASTHMA UNSPECIFIED 11/15/2011 493.90 ASTHMA UNSPECIFIED 09/15/2012 625.9 UNSPECIFIED SYMPTOM ASSOCIATED WITH FEMALE GENITAL ORGANS 09/15/2012 626.2 MENORRHAGIA 09/15/2012 V72.31 SALT LIFTER EXAM, ROUTINE 09/15/2012 V76.10 BREAST CANCER SCREENING 09/15/2012 V76.2 CERVICAL CANCER SCREENING (PAP SMEAR) 09/15/2012 625.9 UNSPECIFIED SYMPTOM ASSOCIATED WITH FEMALE GENITAL ORGANS 09/15/2012 626.2 MENORRHAGIA 09/15/2012 V72.31 SALT LIFTER EXAM, ROUTINE 09/15/2012 V76.10 BREAST CANCER SCREENING 09/15/2012 V76.2 CERVICAL CANCER SCREENING (PAP SMEAR) 09/15/2012 625.9 UNSPECIFIED SYMPTOM ASSOCIATED WITH FEMALE GENITAL ORGANS 09/15/2012 626.2 MENORRHAGIA 09/15/2012 V72.31 SALT LIFTER EXAM, ROUTINE 09/15/2012 V76.10 BREAST CANCER SCREENING 09/15/2012 V76.2 CERVICAL CANCER SCREENING (PAP SMEAR) 09/15/2012 ROCK GARCIA APRN 625.9 UNSPECIFIED SYMPTOM ASSOCIATED WITH FEMALE GENITAL ORGANS 09/15/2012 ROCK GARCIA APRN 626.2 MENORRHAGIA 09/15/2012 ROCK GARCIA APRN V72.31 SALT LIFTER EXAM, ROUTINE 09/15/2012 ROCK GARCIA APRN S V76.10 BREAST CANCER SCREENING 09/15/2012 ROCK GARCIA APRN S V76.2 CERVICAL CANCER SCREENING (PAP SMEAR) 09/15/2012 ROCK GARCIA APRN S 625.9 UNSPECIFIED SYMPTOM ASSOCIATED WITH FEMALE GENITAL ORGANS 09/15/2012 ROCK GARCIA APRN S 626.2 MENORRHAGIA 09/15/2012 ROCK GARCIA APRN S V72.31 SALT LIFTER EXAM, ROUTINE 09/15/2012 ROCK GARCIA APRN S V76.10 BREAST CANCER SCREENING 09/15/2012 ROCK GARCIA APRN S V76.2 CERVICAL CANCER SCREENING (PAP SMEAR) 09/15/2012 CATHRYN FRANCO APRN A 625.9 UNSPECIFIED SYMPTOM ASSOCIATED WITH FEMALE GENITAL ORGANS 09/15/2012 CATHRYN FRANCO APRN A 626.2 MENORRHAGIA 09/15/2012 CATHRYN FRANCO APRN A V72.31 SALT LIFTER EXAM, ROUTINE 09/15/2012 CATHRYN FRANCO APRN A V76.10 BREAST CANCER SCREENING 09/15/2012 CATHRYN FRANCO APRN A V76.2 CERVICAL CANCER SCREENING (PAP SMEAR) 09/22/2012 789.04 ABDOMINAL PAIN LEFT LOWER QUADRANT 09/22/2012 789.04 ABDOMINAL PAIN LEFT LOWER QUADRANT 09/22/2012 ROCK GARCIA APRN S 789.04 ABDOMINAL PAIN LEFT LOWER QUADRANT 09/22/2012 ROCK GARCIA APRN S 789.04 ABDOMINAL PAIN LEFT LOWER QUADRANT 09/22/2012 LITO FRANCO APRNIDI A 789.04 ABDOMINAL PAIN LEFT LOWER QUADRANT 11/13/2012 ROCK GARCIA APRN S V25.01 CONTRACEPTION - ORAL CONTRACEPTION 11/13/2012 ROCK GARCIA APRN S V25.01 CONTRACEPTION - ORAL CONTRACEPTION 11/13/2012 CATHRYN FRANCO APRN A V25.01 CONTRACEPTION - ORAL CONTRACEPTION 10/20/2013 ROCK GARCIA APRN S 307.42 PERSISTENT DISORDER OF INITIATING OR MAINTAINING SLEEP 10/20/2013 ROCK GARCIA APRN S 623.5 LEUKORRHEA NOT SPECIFIED INFECTIVE 10/20/2013 JOSE PADGETT ROCK Hubbard V70.0 EXAM - ROUTINE H&P 10/20/2013 CATHRYN FRANCO APRN 307.42 PERSISTENT DISORDER OF INITIATING OR MAINTAINING SLEEP 10/20/2013 CATHRYN FRANCO APRN 623.5 LEUKORRHEA NOT SPECIFIED INFECTIVE 10/20/2013 CATHRYN FRANCO APRN V70.0 EXAM - ROUTINE H&P 10/22/2013 CATHRYN FRANCO APRN V74.5 STD SCREEN Procedures Code Description [place] [address] GC/CHLAM PROBE ([facility]) 09/15/2012 27709 TRICHOMONAS (IN-HOUSE) 09/15/2012 72682 URINE TEST (IN- HOUSE) 09/15/2012 65802 UA LONG DIP 09/15/2012 38509 PAP SMEAR 09/17/2012 16036 CULTURE UROGENITAL 09/18/2012 62435 UA W/ CULTURE IF INDICATED 09/22/2012 Q0091 PAP SMEAR OBTAIN SMEAR 09/28/2012 60005 URINE TEST (IN- HOUSE) 11/13/2012 90769 GC/CHLAM PROBE ([facility]) 10/22/2013 32524 TRICHOMONAS (IN-HOUSE) 10/22/2013 30863 CULTURE UROGENITAL 10/25/2013 Results There is no data. Encounters ACCT No. Visit Date/Time Discharge Status Pt. Type Provider Facility Loc./Unit Complaint [id number] 10/22/2013 08:57:00 10/22/2013 23:59:59 CLS Outpatient CATHRYN FRANCO APRN [id number] 10/20/2013 08:51:00 10/20/2013 23:59:59 CLS Outpatient JOSEROCK MITTAL APRN [id number] 11/13/2012 13:01:00 11/13/2012 23:59:59 CLS Outpatient ROCK GARCIA APRN [id number] 09/22/2012 13:17:00 09/22/2012 23:59:59 CLS Outpatient [id number] 09/15/2012 09:33:00 09/15/2012 23:59:59 CLS Outpatient [id number] 02/21/2012 14:30:00 02/21/2012 23:59:59 CLS Outpatient [id number] 09/25/2012 15:43:00 Document Registration
--- OUTSIDE RECORDS SUMMARY | 2017-11-16 15:10 | XMS REPORT ---
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 125897639 ALLERGIES No Known Allergies SOCIAL HISTORY Never Assessed PLAN OF CARE Activity Details Follow Up prn Reason: VITAL SIGNS Height 83 in 2016-08-20 Weight 187.5 lbs 2016-08-20 Temperature 98.4 degrees Fahrenheit 2016-08-20 Heart Rate 82 bpm 2016-08-20 Respiratory Rate 20 2016-08-20 BMI 19.13 kg/m2 2016-08-20 Blood pressure systolic 98 mmHg 2016-08-20 Blood pressure diastolic 68 mmHg 2016-08-20 MEDICATIONS Medication Instructions Dosage Frequency Start Date End Date Duration Status Vitamin B-6 100 MG Orally Once a day 1 tablet 24h Nov, Active Isoniazid 300 MG as directed Nov, Active Proventil HFA 90 mcg/actuation inhale 2 puffs by inhalation route every 6 hours PT MUST MAKE AND KEEP APPT FOR FURTHER REFILLS 4h October, Active Qvar 40 mcg/actuation Inhalation Twice a day 2 Puffs by Inhalation route 2 times per day 12h Apr, Active Hydrocodone-Acetaminophen 7.5-325 MG Orally every 6 hrs 1-2 tablet as needed 6h Active RESULTS Name Result Date Reference Range LIVER PANEL (LFT) 2016-08-20 Protein, Total, Serum 7.4 6.0-8.5 Albumin, Serum 4.1 3.5-5.5 Bilirubin, Total 0.2 0.0-1.2 Bilirubin, Direct 0.06 0.00-0.40 Alkaline Phosphatase, S 94 39-117 AST (SGOT) 19 0-40 ALT (SGPT) 27 0-32 PROCEDURES Procedure Date Ordered Result Body Site HEPATIC FUNCTION PANEL August 20, 2016 VENIPUNCT, ROUTINE* August 20, 2016 IMMUNIZATIONS No Known Immunizations MEDICAL (GENERAL) HISTORY Type Description Date Medical History asthma Medical History Positive TB on State Medications Medical History Asthma Medical History fibromia Surgical History left ovary 15 years ago Surgical History hysterectomy Hospitalization History Hospitalization for surgery only
--- OUTSIDE RECORDS SUMMARY | 2017-11-16 15:10 | XMS REPORT ---
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11 [place] [address] [place] [id number] [place] [address] 87058- 2032 Jul, Positive TB test R76.11 [place] [address] [place] [id number] [place] [address]6058- 2309 Jun, [place] [address] [place] [id number] [place] [address] 4[address] May, Positive TB test R76.11 [place] [address] [place] [id number] [place] [address]8400- 8403 Apr, [facility] [address] [address] Feb, Positive TB test R76.11 [facility] [address] [address] Jan, [facility] [address] [address] Jan, Positive TB test R76.11 [facility] [address] [address] Jan, Dysfunctional uterine bleeding N93.8 and Menorrhagia with regular cycle N92.0 [place] [address] [place] [id number] [place] [address]389- 4143 Dec, Routine gynecological examination Z01.419 and Menorrhagia with regular cycle N92.0 [place] [address] [place] [address] 59958- 3790 Dec, Routine gynecological examination Z01.419 ; Menorrhagia with regular cycle N92.0 and Dysfunctional uterine bleeding N93.8 [place] [address] [place] [address] 36426- 6844 Dec, Positive TB test R76.11 and Uncomplicated asthma, unspecified asthma severity J45.909 [place] [address] [address] Nov, Positive TB test R76.11 [facility] [address] [address] October, [facility] [address] [place] [address] 26408- 0578 October, Positive TB test R76.11 [facility] [address] [address] Dec, Asthma 493.90 [facility] [address] [place] [address] 25559- 9346 Dec, [facility] [place] [facility] [address] [id number] [place] [address] 2554 Dec, [facility] [place] [facility] [address] [id number] [place] [address]- 5545 Sep, [facility] [place] [facility] [address] [id number] [place] [address] 5727 Sep, [facility] [place] [facility] [address] [id number] [place] [address] 6607 October, [facility] [place] [facility] [address] [id number] [place] [address]- 4257 October, [facility] [place] [facility] [address] [id number] [place] [address]- 1683 October, [facility] [place] [facility] [address] [id number] [place] [address]- 4736 October, [facility] [place] [facility] [address] [id number] [place] [address]- 0469 October, [facility] [place] [facility] [address] [id number] [place] [address]- 0747 October, [facility] [place] [facility] [address] [id number] [place] [address]- 5118 October, [facility] [place] [facility] [address] [id number] [place] [address]- 4255 October, [facility] [place] [facility] [address] [id number] [place] [address]- 3990 October, [facility] [place] [facility] [address] [id number] [place] [address]- 9319 Sep, [facility] [place] [facility] [address] [id number] [place] [address]- 6112 Jul, [facility] [place] [facility] [address] [id number] [place] [address]- 7394 Jul, [facility] [place] [facility] [address] [id number] [address] 0[address] May, [facility] [address] [facility] [id number] [address] October, [facility] [address] [facility] [id number] [address] Sep, [facility] [address] [facility] [id number] [address] Sep, [facility] [address] [facility] [id number] [address]2 Sep, [facility] [address] [facility] [id number] [address] Sep, [facility] [address] [place] [id number] [address] 68[address] Sep, [facility] [address], [place] [address] 9[address] Sep, [facility] [address] [place] [id number] [address] 2409 Sep, [facility] [address] [address]- 6697 Apr, [facility] [address], [place] [address]- 3[address] Apr, [facility] [address] [place] [id number] [address]- 2508 Feb, [facility] [address] [place] [id number] [address] October, IMMUNIZATIONS No Known Immunizations SOCIAL HISTORY Never Assessed REASON FOR VISIT refill Qvar and Proventil PLAN OF CARE VITAL SIGNS MEDICATIONS Medication Instructions Dosage Frequency Start Date End Date Duration Status Proventil HFA 90 mcg/actuation inhale 2 puffs by inhalation route every 6 hours PT MUST MAKE AND KEEP APPT FOR FURTHER REFILLS 4h 06 Oct, 2013 Active Qvar 40 mcg/actuation Inhalation Twice a day 2 Puffs by Inhalation route 2 times per day 12h 14 Apr, 2012 Active RESULTS No Results PROCEDURES No Known procedures INSTRUCTIONS MEDICATIONS ADMINISTERED No Known Medications MEDICAL (GENERAL) HISTORY Type Description Date Medical History asthma Medical History Positive TB on State Medications Medical History Asthma Medical History fibromia Surgical History left ovary 15 years ago Surgical History hysterectomy Hospitalization History Hospitalization for surgery only
--- OUTSIDE RECORDS SUMMARY | 2017-11-16 15:10 | XMS REPORT ---
Author Author ROCK GARCIA [facility] eClinical[employer] Address Unknown Phone Unavailable Care Team Providers Care Piece Dyer Name Role Phone ROCK GARCIA CP Unavailable Allergies, Adverse Reactions, Alerts Substance Reaction Event Type N.K.D.A. 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 Active Assessment Uncomplicated asthma, unspecified asthma severity J45.909 Active Problem Positive TB test R76.11 Active Medications Medication Code System Code Instructions Start Date End Date Status Dosage Isoniazid [facility] [address]-58 300 MG Orally November 24, 2015 as directed Qvar [facility] [address]-29 40 mcg/actuation Inhalation Twice a day Apr 30, 2012 2 Puffs by Inhalation route 2 times per day Proventil HFA [facility] [address]-80 90 mcg/actuation every 4 hrs October 20, 2013 inhale 2 puffs by inhalation route every 6 hours PT MUST MAKE AND KEEP APPT FOR FURTHER REFILLS Vitamin B-6 [facility] [address]-18 100 MG Orally Once a day November 24, 2015 1 tablet Procedures Procedure Coding System Code Date Office Visit, Est Pt., Level 3 CPT-4 20819 December 22, 2015 Vital Signs Date/Time: December 22, 2015 Cardiac Monitoring Heart Rate 80 bpm Weight 185 lbs Height 83 in BMI 18.88 Index Blood Pressure Diastolic 70 mmHg Blood Pressure Systolic 110 mmHg Results No Known Results Summary Purpose eClinicalWorks Submission
--- OUTSIDE RECORDS SUMMARY | 2017-11-16 15:10 | XMS REPORT ---
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
--- OUTSIDE RECORDS SUMMARY | 2017-11-16 15:10 | XMS REPORT ---
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 Active 165134115 Problem Dysfunctional uterine bleeding N93.8 Active 77876474 Problem Menorrhagia with regular cycle N92.0 Active 442087319 ALLERGIES No Information ENCOUNTERS Encounter Location Date Diagnosis [place] [address] [address] Aug, Acute non-recurrent frontal sinusitis J01.10 and Carpal tunnel syndrome, left G56.02 [place] [address] [place] [id number] [place] [address]- 9317 Dec, Uncomplicated asthma, unspecified asthma severity J45.909 [place] [address] [place] [id number] [place] [address]5849- 7005 Aug, Positive TB test R76.11 [place] [address] [place] [id number] [place] [address]15- 5949 Jul, Positive TB test R76.11 [place] [address] [place] [id number] [place] [address] 75899- 1899 Jun, [place] [address] [place] [id number] [place] [address] 65920- 7890 May, Positive TB test R76.11 [place] [address] [place] [id number] [place] [address]31- 4870 Apr, [facility] [address], [place] [address]- 3330 Feb, Positive TB test R76.11 [facility] [address], [place] [address] Jan, [facility] [address], [place] [address]- 6944 Jan, Positive TB test R76.11 [facility] [address], [place] [address]- 6586 Jan, Dysfunctional uterine bleeding N93.8 and Menorrhagia with regular cycle N92.0 [place] [address] [place] [id number] [place] [address] 42483- 6534 Dec, Routine gynecological examination Z01.419 and Menorrhagia with regular cycle N92.0 [place] [address] [place] [address] 57061- 5823 Dec, Routine gynecological examination Z01.419 ; Menorrhagia with regular cycle N92.0 and Dysfunctional uterine bleeding N93.8 [place] [address] [place] [address]22- 2168 Dec, Positive TB test R76.11 and Uncomplicated asthma, unspecified asthma severity J45.909 [place] [address], [place] [address]- 5746 Nov, Positive TB test R76.11 [facility] [address], [place] [address]- 9971 October, [facility] [address] [place] [address] 46397- 1213 October, Positive TB test R76.11 [facility] [address], [place] [address]- 8216 Dec, Asthma 493.90 [facility] [address] [place] [address] 10846- 5649 Dec, [facility] [place] [facility] [address] [id number] [place] [address]- 4667 Dec, [facility] [place] [facility] [address] [id number] [place] [address]- 2981 Sep, [facility] [place] [facility] [address] [id number] [place] [address]- 5339 Sep, [facility] [place] [facility] [address] [id number] [place] [address]- 0820 October, [facility] [place] [facility] [address] [id number] [place] [address]- 7451 October, [facility] [place] [facility] [address] [id number] [place] [address]- 1177 October, [facility] [place] [facility] [address] [id number] [place] [address]- 2301 October, [facility] [place] [facility] [address] [id number] [place] [address]- 4426 October, [facility] [place] [facility] [address] [id number] [place] [address]- 8827 October, [facility] [place] [facility] [address] [id number] [place] [address]- 4207 October, [facility] [place] [facility] [address] [id number] [place] [address]- 7321 October, [facility] [place] [facility] [address] [id number] [place] [address]- 7242 October, [facility] [place] [facility] [address] [id number] [place] [address]- 6111 Sep, [facility] [place] [facility] [address] [id number] [place] [address]- 8394 Jul, [facility] [place] [facility] [address] [id number] [place] [address]- 4821 Jul, [facility] [place] [facility] [address] [id number], [place] [address]- 5139 May, [facility] [address], [place] [address]- 7306 October, [facility] [address] [facility] [id number], [place] [address]- 7528 Sep, [facility] [address], [place] [address]- 1130 Sep, [facility] [address] [facility] [id number] [address]- 6490 Sep, [facility] [address], [place] [address]- 8059 Sep, [facility] [address], [place] [address]- 2538 Sep, [facility] [address], [place] [address]- 5427 Sep, [facility] [address], [place] [address]- 4978 Sep, [facility] [address], [place] [address]- 8940 Apr, [facility] [address] [place] [id number], [place] [address]- 6837 Apr, [facility] [address] [place] [id number], [place] [address]- 9432 Feb, [facility] [address] [place] [id number], [place] [address]- 0026 October, IMMUNIZATIONS No Known Immunizations SOCIAL HISTORY Never Assessed REASON FOR VISIT Positive for TB PLAN OF CARE Activity Details Follow Up 4 Weeks Reason: VITAL SIGNS MEDICATIONS No Known Medications RESULTS No Results PROCEDURES No Known procedures INSTRUCTIONS MEDICATIONS ADMINISTERED No Known Medications MEDICAL (GENERAL) HISTORY Type Description Date Medical History asthma Medical History Positive TB on State Medications Medical History Asthma Medical History fibromia Surgical History left ovary 15 years ago Surgical History hysterectomy Hospitalization History Hospitalization for surgery only
--- OUTSIDE RECORDS SUMMARY | 2017-11-16 15:10 | XMS REPORT ---
Author Author SHAWN NEVAREZ Organization [employer] Address Unknown Phone Unavailable Care Team Providers Care Chaser Helper Name Role Phone SHAWN NEVAREZ CP Unavailable Allergies, Adverse Reactions, Alerts Substance Reaction Event Type N.K.D.A. Info Not Available Non Drug Allergy Problems Problem Type Condition Code Onset Dates Condition Status Problem Menorrhagia with regular cycle N92.0 Active Problem Dysfunctional uterine bleeding N93.8 Active Problem Routine gynecological examination Z01.419 Active Assessment Menorrhagia with regular cycle N92.0 Active Assessment Dysfunctional uterine bleeding N93.8 Active Problem Positive TB test R76.11 Active Assessment Routine gynecological examination Z01.419 Active Medications Medication Code System Code Instructions Start Date End Date Status Dosage Qvar [facility] [address]-13 40 mcg/actuation Inhalation Twice a day Apr 30, 2012 2 Puffs by Inhalation route 2 times per day Proventil HFA [facility] [address]-87 90 mcg/actuation every 4 hrs October 20, 2013 inhale 2 puffs by inhalation route every 6 hours PT MUST MAKE AND KEEP APPT FOR FURTHER REFILLS Vitamin B-6 [facility] [address]-34 100 MG Orally Once a day November 24, 2015 1 tablet Isoniazid [facility] [address]-49 300 MG Orally November 24, 2015 as directed Procedures Procedure Coding System Code Date No Charge CPT-4 67221 January 10, 2016 TRICHOMONAS ASSAY W/OPTIC CPT-4 66704 January 10, 2016 SPECIMEN HANDLING CPT-4 31848 January 10, 2016 Preventive Care New Pt. Age 18-39 CPT-4 66816 January 10, 2016 FLEMING VAG, DNA, DIR PROBE CPT-4 41710 January 10, 2016 Vital Signs Date/Time: January 10, 2016 Cardiac Monitoring Heart Rate 78 bpm Weight 186.8 lbs Height 83 in Blood Pressure Diastolic 68 mmHg Blood Pressure Systolic 116 mmHg Results No Known Results Summary Purpose eClinicalWorks Submission
--- OUTSIDE RECORDS SUMMARY | 2017-11-16 15:10 | XMS REPORT ---
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 Active 572465617 ALLERGIES No Known Allergies SOCIAL HISTORY Never Assessed PLAN OF CARE Activity Details Follow Up 4 Weeks Reason:last month of tx VITAL SIGNS Height 83 in 2016-07-24 Weight 192.1 lbs 2016-07-24 Temperature 98.1 degrees Fahrenheit 2016-07-24 Heart Rate 82 bpm 2016-07-24 Respiratory Rate 22 2016-07-24 BMI 19.60 kg/m2 2016-07-24 Blood pressure systolic 102 mmHg 2016-07-24 Blood pressure diastolic 72 mmHg 2016-07-24 MEDICATIONS Medication Instructions Dosage Frequency Start Date End Date Duration Status Isoniazid 300 MG as directed Nov, Active Qvar 40 mcg/actuation Inhalation Twice a day 2 Puffs by Inhalation route 2 times per day 12h Apr, Active Proventil HFA 90 mcg/actuation inhale 2 puffs by inhalation route every 6 hours PT MUST MAKE AND KEEP APPT FOR FURTHER REFILLS 4h October, Active Vitamin B-6 100 MG Orally Once a day 1 tablet 24h Nov, Active RESULTS No Results PROCEDURES No Known procedures IMMUNIZATIONS No Known Immunizations MEDICAL (GENERAL) HISTORY Type Description Date Medical History asthma Medical History Positive TB on State Medications Medical History Asthma Medical History fibromia Surgical History left ovary 15 years ago Surgical History hysterectomy Hospitalization History Hospitalization for surgery only
[2017-11-16] MEDS ORDERED: DAPSONE 100 MG TABLET PO STA (15:38)
[2017-11-16] MEDS ORDERED: methylPREDNISolone 125 MG (Solu-MEDROL) VIAL IM STA (15:38)
[2017-11-16] MEDS ORDERED: diphenhydrAMINE 25 MG TAB (BENADRYL) PO ONE (15:45)
[2017-11-16] MEDS ORDERED: CLINDAMYCIN 300 MG/2ML (CLEOCIN) VIAL ONE (15:45)
[2017-11-16] MEDS ORDERED: CLINDAMYCIN 600 MG/4ML (CLEOCIN) VIAL IM ONE (15:45)
[2017-11-16] MEDS ORDERED: PRD10T PO (15:48)
[2017-11-16] MEDS ORDERED: SULF1TAB35 PO (15:48)
[2017-11-16] MEDS ORDERED: DAPS25TA2 PO (15:48)
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
[2017-11-16 16:07] VITALS: BP 121/64
== END 2017-11-16 16:07 | disposition home or self-care (01) ==
LOC: EDUNIT# 15:01 → ER 15:04
DX: S80.862A Insect bite (nonvenomous), left lower leg, initial encounter (principal); L29.9 Pruritus, unspecified; J45.909 Unspecified asthma, uncomplicated; G43.909 Migraine, unspecified, not intractable, without status migrainosus; Z79.51 Long term (current) use of inhaled steroids; W57.XXXA Bitten or stung by nonvenomous insect and other nonvenomous arthropods, initial encounter
CPT/HCPCS: 96372; 99284